=== PATIENT | female | born 1970 | race Caucasian/White ===

== ENCOUNTER 2017-05-10 17:56 | Emergency (ER) | payer OTHER ==
[~2017-05-10] VITALS: Ht 165.1 cm; Wt 77.2 kg
[2017-05-10 19:23] LABS: HEMATOCRIT 37.7 % (36.0-46.0); HEMOGLOBIN 12.3 G/DL (11.9-15.5); MCH 28.3 PG (29.0-34.0); MCHC 32.6 G/DL (30.0-36.0); MCV 86.9 FL (83-99); PLATELET COUNT 254 K/uL (156-360); RBC DIS.WIDTH-CV 13.7 % (11.8-14.6); RED BLOOD COUNT 4.34 M/uL (3.80-5.20); WHITE BLOOD COUNT 5.8 K/uL (4.1-10.2)
[2017-05-10 19:34] LABS: ALBUMIN 3.7 g/dL (3.2-4.8); CHLORIDE 106 mEq/L (99-109); POTASSIUM 3.7 mEq/L (3.7-5.4); SODIUM 139 mEq/L (136-147)
[2017-05-10 19:36] LABS: GLUCOSE 92 mg/dL (70-99); TOTAL PROTEIN 6.6 g/dL (6.4-8.3)
[2017-05-10 19:38] LABS: TOTAL BILIRUBIN 0.3 mg/dL (0.0-1.0)
[2017-05-10 19:40] LABS: ALKALINE PHOSPHATASE 70 IU/L (3-129); CREATININE 0.7 mg/dL (0.6-1.3); GFR ESTIMATE (CALCULATED) > 59 mL/min/
[2017-05-10 19:41] LABS: UREA NITROGEN (BUN) 8 mg/dL (9-23)
[2017-05-10 19:42] LABS: AST (GOT) 29 IU/L (2-34)
[2017-05-10 19:43] LABS: ALT (GPT) 40 IU/L (3-49)
[2017-05-10] MEDS ORDERED: BENTYL20 MG PO (19:46)
[2017-05-10 19:52] LABS: APPEARANCE CLEAR ((CLEAR)); BILIRUBIN NEGATIVE; BLOOD NEGATIVE; COLOR YELLOW ((YELLOW)); GLUCOSE (STRIP) NEGATIVE; KETONES NEGATIVE; LEUKOCYTES NEGATIVE; NITRITE NEGATIVE; PROTEIN (STRIP) NEGATIVE; SPECIFIC GRAVITY 1.011 (1.000-1.030); UCUL ADDED? NO; UROBILINOGEN 0.2 MG/DL (0.2-1.0)
[2017-05-10 21:07] LABS: LIPASE 19 U/L (1.0-51.0)
[2017-05-10] MEDS ORDERED: PERCOCET 5/31 TABLET PO (22:17)
[2017-05-10] MEDS ORDERED: ZOFRAN ODT4 MG PO (22:17)
[2017-05-10 22:38] VITALS: BP 146/84
[2017-05-14] MEDS ORDERED: TRAMADOL HCL50 MG PO (15:40)
[2017-05-14] MEDS ORDERED: BENTYL20 MG PO (15:41)
== END 2017-05-10 22:39 | disposition home or self-care (01) ==
LOC: EME 17:56
PROVIDERS: Nurse Practitioner Family
DX: K80.20 Calculus of gallbladder without cholecystitis without obstruction (principal); Z87.891 Personal history of nicotine dependence; Z88.5 Allergy status to narcotic agent
CPT/HCPCS: 76705; 80053; 81003; 83690; 85027; 99281; 99284

== ENCOUNTER → 2017-05-14 | Outpatient (CLI) | payer OTHER ==
[~2017-05-14] MED LIST: BENTYL20 MG PO; PERCOCET 5/31 TABLET PO; TRAMADOL HCL50 MG PO; ULTRAM50 MG PO; ZOFRAN ODT4 MG PO
== END | disposition home or self-care (01) ==
LOC: CDC 08:12
DX: Z01.810 Encounter for preprocedural cardiovascular examination (principal); K80.50 Calculus of bile duct without cholangitis or cholecystitis without obstruction
CPT/HCPCS: 93000

== ENCOUNTER 2017-05-18 05:42 | Day surgery (SDC) | payer OTHER ==
[~2017-05-18] VITALS: Ht 165.1 cm; Wt 76.0 kg
[~2017-05-18 05:42] MED LIST changes: -ULTRAM50 MG PO
[2017-05-18 06:19] VITALS: BP 143/97
[2017-05-18] MEDS ORDERED: ULTRAM50 MG PO (08:45)
[2017-05-18 10:52] VITALS: BP 122/76
[2017-05-18 11:55] VITALS: BP 133/73
== END 2017-05-18 12:11 | disposition home or self-care (01) ==
LOC: SDC 05:42
PROC: 0FT44ZZ Resection of Gallbladder, Percutaneous Endoscopic Approach (ICD-10-PCS; principal; 2017-05-18)
DX: K80.10 Calculus of gallbladder with chronic cholecystitis without obstruction (principal); K66.0 Peritoneal adhesions (postprocedural) (postinfection); I10 Essential (primary) hypertension; R73.03 Prediabetes; R00.2 Palpitations; Z87.891 Personal history of nicotine dependence
CPT/HCPCS: 88304; J0690; J1100; J1170; J1885; J2405; J2710; J2765; J3010; Q0175